=== PATIENT | male | born 1970 | race African-American/Black ===

== ENCOUNTER 2016-05-11 11:45 | Inpatient (IN) | payer OTHER ==
[~2016-05-11] VITALS: Ht 177.8 cm; Wt 63.5 kg
--- NOTE | ~2016-05-11 | EEG ---
[facility] [place] [address] ELECTROENCEPHALOGRAM Name: KADE CARRIZALES Room #: 447-P [facility] IN M.R.#: [id number] Admission: 05/11/16 Attend Phys: Navarro Boswell MD Discharge: 05/12/16 Date of : 74 Report #: [id number] THIS REPORT FOR: //name// CC: FAM unknown Navarro Boswell DATE OF SERVICE: 05/11/2016 This patient is being evaluated for an episode of syncope. EEG was done to further evaluate that. Background activity in this patient's EEG is about 10 Hz and 40 microvolts. This is a symmetrical activity. The patient became drowsy that was associated with bilateral slowing and vertex sharp waves. Photic stimulation was not carried out because of technical reason. Throughout the records, no active epileptiform activity was noticed. IMPRESSION: This patient's EEG is within normal limits. No active epileptiform activity was noticed. It might be mentioned that EEG can be normal in a patient with seizure disorder in a significant percentage of patients and therefore, clinical correlation is recommended. <ELECTRONICALLY SIGNED> By: Forest Bailey MD 05/14/16 1933 Forest Bailey MD /nt
--- NOTE | ~2016-05-11 | EKG ---
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
[~2016-05-11 11:45] MED LIST: BACTRIM DS TAB1 EACH PO
[2016-05-11 11:53] VITALS: BP 139/87
[2016-05-11 12:38] LABS: ABSOLUTE NEUTROPHILS 3.6 thou/uL (1.4-8.2); BASOPHILS 1.1 % (0.0-2.0); EOSINOPHILS 2.6 % (0.0-3.0); HEMATOCRIT 39.8 % (42.0-52.0); HEMOGLOBIN 13.1 gm/dL (14.0-18.0); LYMPHOCYTES 30.6 % (24.0-44.0); MCH 29.9 pg (26.0-34.0); MCHC 32.8 g/dL (28.0-37.0); MONOCYTES 7.1 % (1.0-8.0); PLATELET COUNT 161 thou/uL (150-400); POLYS 58.6 % (36.0-66.0); RBC 4.38 mil/uL (4.50-6.00); RDW 13.5 % (10.5-14.5); WBC 6.1 thou/uL (4.0-11.0)
[2016-05-11 12:48] LABS: MANUAL DIFF NO
[2016-05-11 12:51] LABS: ANION GAP 5 mmol/L (7-16); BUN 10 mg/dL (7-18); CALCIUM 8.9 mg/dL (8.5-10.1); CHLORIDE 106 mmol/L (98-107); CO2 28 mmol/L (21-32); CREATININE 0.9 mg/dL (0.6-1.3); GLUCOSE 102 mg/dL (70-99); POTASSIUM 4.5 mmol/L (3.5-5.1); SODIUM 139 mmol/L (136-145)
[2016-05-11 13:03] LABS: NT-PRO BRAIN NAT PEPTIDE 51 pg/mL (<300); TROPONIN-I < 0.04 ng/mL (<0.04-0.07)
[2016-05-11 15:39] VITALS: BP 131/78
[2016-05-11 16:38] VITALS: BP 118/64
[2016-05-11 17:32] LABS: FOLIC ACID 15.9 ng/mL (8.6-58.9); TSH 0.592 uIU/mL (0.358-3.740)
[2016-05-11 18:32] LABS: AMP/METHAMP Negative (Negative); BARBITURATES Negative (Negative); BENZODIAZEPINES Negative (Negative); COCAINE Negative (Negative); METHADONE Negative (Negative); OPIATES Negative (Negative); PCP Negative (Negative); THC POSITIVE (Negative)
[2016-05-12 04:43] VITALS: BP 118/59
[2016-05-12 05:51] LABS: ALBUMIN 2.8 g/dL (3.4-5.0); ALKALINE PHOSPHATASE 47 U/L (46-116); ANION GAP 8 mmol/L (7-16); BUN 14 mg/dL (7-18); CALCIUM 7.9 mg/dL (8.5-10.1); CHLORIDE 109 mmol/L (98-107); CHOLESTEROL 109 mg/dL (<200); CO2 25 mmol/L (21-32); GLUCOSE 108 mg/dL (70-99); HDL CHOLESTEROL 39 mg/dL (>40); LDL CHOLESTEROL 59 mg/dL (<100); MAGNESIUM 1.9 mg/dL (1.8-2.4); POTASSIUM 4.4 mmol/L (3.5-5.1); SGOT 14 U/L (15-37); SGPT 20 U/L (30-65); SODIUM 142 mmol/L (136-145); TC:HDL 2.8 Ratio (Not establshd); TOTAL BILIRUBIN 0.1 mg/dL (<0.1-1.0); TOTAL PROTEIN 5.4 g/dL (6.4-8.2); TRIGLYCERIDE 57 mg/dL (<150); VLDL 11 mg/dL (<40)
[2016-05-12 05:53] LABS: SERUM ASSESSMENT Clear
[2016-05-12 08:44] VITALS: BP 133/81
[2016-05-12 11:48] VITALS: BP 133/81
== END 2016-05-12 12:30 | disposition home or self-care (01) | DRG 312 ==
LOC: ER 11:45 → EROBS 14:33 → 4S 14:33
PROVIDERS: Nurse Practitioner; Psychiatry & Neurology Neurology
DX: R55 Syncope and collapse (principal); R61 Generalized hyperhidrosis; F17.210 Nicotine dependence, cigarettes, uncomplicated; J45.909 Unspecified asthma, uncomplicated; H54.7 Unspecified visual loss; G57.82 Other specified mononeuropathies of left lower limb; Z82.3 Family history of stroke
CPT/HCPCS: 10100

== ENCOUNTER → 2016-05-18 | Outpatient (CLI) | payer OTHER | LOC: HYPER 07:00 | DX: L21.9 Seborrheic dermatitis, unspecified (principal); A49.01 Methicillin susceptible Staphylococcus aureus infection, unspecified site; R21 Rash and other nonspecific skin eruption; J45.909 Unspecified asthma, uncomplicated; F17.210 Nicotine dependence, cigarettes, uncomplicated ==